=== PATIENT | female | born 1975 | race Hispanic/Latino ===

== ENCOUNTER 2016-08-14 06:18 | Day surgery (SDC) | payer OTHER ==
[2016-08-14] MEDS ORDERED: WATER FOR IRRIG STERILE IR ONE (07:05)
--- NOTE | 2016-08-14 07:37 | Anesthesia Consultation ---
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
--- NOTE | 2016-08-14 07:37 | Anesthesia Day of Surgery ---
Anesthesia Day of Surgery - Day of Surgery Patient Examined: Yes Patient H&P Reviewed: Yes Patient is NPO: Yes Beta Blockers: Yes
[2016-08-14] MEDS ORDERED: DIPRIVAN 10 MG/ML IV ONE (07:57)
[2016-08-14] MEDS ORDERED: NACL 0.9% 1000 ML 1,000 ML IV SCH (08:00)
--- NOTE | 2016-08-14 09:19 | Short Stay Summary ---
Short Stay Documentation - Allergies and Medications Current Medications: Allergies codeine Allergy (Verified 10/24/14 15:36) N&V Penicillins Allergy (Verified 10/24/14 15:36) rash, itching Home Medications Medication Instructions Recorded Confirmed Last Taken Type Aspirin [Aspirin BABY CHEW TAB] 81 mg PO QDAY 10/24/14 08/13/16 08/05/16 History Atenolol [Tenormin] 25 mg PO DAILY 10/24/14 08/13/16 08/13/16 History Escitalopram [Lexapro] 10 mg PO DAILY 10/24/14 08/13/16 08/13/16 History Omeprazole [PriLOSEC] 40 mg PO DAILY 10/24/14 08/13/16 08/13/16 History metFORMIN 1,000 mg PO BID 08/13/16 08/13/16 08/13/16 History Active Medications Sodium Chloride (Nacl 0.9% 1000 Ml) 1,000 mls @ 50 mls/hr IV DIRECT JADON - Brief post op/procedure progress note Date of procedure: 08/14/16 Pre-op diagnosis: 1. RUQ abdominal pain 2. Epigastric pain 3. GERD Post-op diagnosis: same (1. GERD 2. Gastritis 3. Duodenitis) Procedure: EGD with biopsy Anesthesia: MAC Findings: As above Surgeon: CRISSY ALVAREZ Estimated blood loss: none Pathology: list (1. Antrum) Specimen disposition: to lab Condition: stable - Disposition Condition at discharge: Stable Disposition: DISCHARGED TO HOME OR SELFCARE Short Stay Discharge Plan Activity: no restrictions Weight Bearing Status: Full Weight Bearing Diet: regular Follow up with: DANIELLE ESCALANTE MD [Primary Care Provider] - 7 Days
[2016-08-14 09:36] VITALS: BP 104/58
--- NOTE | 2016-08-14 10:34 | Post Anesthesia Evaluation ---
- Post Anesthesia Evaluation Patient Participated: Yes Airway Patent: Yes Stable Respiratory Function: Yes Nausea/Vomiting: No Temp > 96.8F: Yes Pain Manageable: Yes Adequeate Hydration: Yes Anesthesia Complications: No Block Receding Appropriately: Not Applicable Patient on Ventilator: No
== END 2016-08-14 06:19 | disposition home or self-care (01) ==
LOC: GIO 06:18
PROVIDERS: ATTEND Internal Medicine Gastroenterology
DX: K29.70 Gastritis, unspecified, without bleeding (principal); K29.80 Duodenitis without bleeding; K21.9 Gastro-esophageal reflux disease without esophagitis; M19.90 Unspecified osteoarthritis, unspecified site; J45.909 Unspecified asthma, uncomplicated; F32.9 Major depressive disorder, single episode, unspecified; G43.909 Migraine, unspecified, not intractable, without status migrainosus; Z87.01 Personal history of pneumonia (recurrent)
CPT/HCPCS: 43239; 88305; 88342; J2704; J7030

== ENCOUNTER 2016-10-09 16:59 | Outpatient (CLI) | payer OTHER ==
[2016-10-09] MEDS ORDERED: NACL ONE (17:26)
[2016-10-09 17:43] LABS: Blood Urea Nitrogen 15 mg/dL (7-17)
--- NOTE | 2016-10-09 21:04 | Cat Scan Report ---
FINAL REPORT EXAM: CT ABDOMEN PELVIS W CON HISTORY: ABD PAIN TECHNIQUE: Standard enhanced CT of the abdomen and pelvis. Delayed images through the abdomen and pelvis were also obtained. Coronal and sagittal reconstruction was also performed. Contrast: 100 cc Omnipaque 300 given IV. 450 cc RediCAT given oral PRIORS: None. FINDINGS: Within the abdomen, the liver, spleen, pancreas, gallbladder, and adrenal glands are unremarkable. There is an 1.1 cm cyst in the midpole anteriorly of the left kidney. There is an 8 mm low-density cyst in the midpole of the right kidney. No evidence for retroperitoneal or pelvic lymphadenopathy is seen. Moderate stool is present throughout the proximal half of the colon. The small bowel loops have normal caliber. No soft tissue mass, fluid collection, inflammatory change, or free air is seen within the abdomen or pelvis. The appendix is normal. Within the pelvis, the bladder is unremarkable. The uterus is mildly enlarged and lobulated. No evidence for mass or lymphadenopathy is seen in the pelvis. Images through the upper abdomen include the lung bases which are expanded and clear. Bony structures show no focal abnormalities and are intact. Medullary rowan is present in the proximal right femur. IMPRESSION: 1. no acute intra-abdominal process noted. 2. Mildly enlarged lobulated uterus 3. Bilateral renal cysts.
== END 2016-10-09 17:00 | disposition home or self-care (01) ==
LOC: CT 16:59
PROVIDERS: ATTEND Internal Medicine Gastroenterology
DX: D10.9 Benign neoplasm of pharynx, unspecified (principal); K21.9 Gastro-esophageal reflux disease without esophagitis; K58.9 Irritable bowel syndrome, unspecified; K30 Functional dyspepsia; R14.0 Abdominal distension (gaseous); K29.70 Gastritis, unspecified, without bleeding; N28.1 Cyst of kidney, acquired; N85.2 Hypertrophy of uterus
CPT/HCPCS: 36415; 74177; 82565; 84520; Q9967

== ENCOUNTER 2017-06-10 06:39 | Day surgery (SDC) | payer OTHER ==
[2017-06-10] MEDS ORDERED: NACL 0.9% 500 ML 500 ML IV SCH (07:00)
[2017-06-10] MEDS ORDERED: NACL 0.9% 500 ML 500 ML ONE (07:18)
[2017-06-10 07:23] LABS: Basophils % (Auto) 0.6 % (0.0-1.8); Eosinophils # (Auto) 0.1 K/mm3 (0.0-0.4); Eosinophils % (Auto) 2.1 % (0.0-4.3); Hematocrit 38.1 % (30.3-42.9); Hemoglobin 12.5 gm/dl (10.1-14.3); Lymphocytes # (Auto) 2.3 K/mm3 (1.2-5.4); Lymphocytes % (Auto) 34.4 % (13.4-35.0); Mean Corpuscular HGB Conc 33 % (30-34); Mean Corpuscular Hemoglobin 26 pg (28-32); Mean Corpuscular Volume 80 fl (79-97); Monocytes # (Auto) 0.4 K/mm3 (0.0-0.8); Monocytes % (Auto) 5.3 % (0.0-7.3); Platelet Count 237 K/mm3 (140-440); Red Blood Count 4.75 M/mm3 (3.65-5.03); Red Cell Distribution Width 17.7 % (13.2-15.2)
[2017-06-10 07:39] LABS: INR 0.81 (0.87-1.13)
[2017-06-10 07:43] LABS: BUN/Creatinine Ratio 18; Blood Urea Nitrogen 11 mg/dL (7-17); Hemolysis Index 73
[2017-06-10] MEDS ORDERED: XYLOCAINE 2% INFILTRATI ONE ×4 (08:29→09:15)
[2017-06-10] MEDS ORDERED: SUBLIMAZE ONE (08:29)
[2017-06-10] MEDS ORDERED: HEPARIN 10,000 UNITS/10 ML ONE (08:29)
[2017-06-10] MEDS ORDERED: VERSED ONE (08:29)
[2017-06-10] MEDS ORDERED: HEPARIN/NS 5000 UNIT/500ML(CATH LAB) 1,500 ML IR ONE (08:29)
[2017-06-10] MEDS ORDERED: NACL 0.9% IR ONE (08:40)
[2017-06-10] MEDS ORDERED: HEPARIN IR ONE (08:40)
[2017-06-10] MEDS ORDERED: SUBLIMAZE IV ONE ×2 (08:56→09:14)
[2017-06-10] MEDS ORDERED: VERSED IV ONE ×2 (08:57→09:32)
[2017-06-10] MEDS ORDERED: MORPHINE ONE (10:29)
[2017-06-10] MEDS ORDERED: MORPHINE IV ONE (11:23)
--- NOTE | 2017-06-10 11:41 | Short Stay Summary ---
Short Stay Documentation Date of service: 06/10/17 - History H&P: obtained from office - Allergies and Medications Current Medications: Allergies codeine Allergy (Verified 10/24/14 15:36) N&V Penicillins Allergy (Verified 10/24/14 15:36) rash, itching Home Medications Medication Instructions Recorded Confirmed Last Taken Type Aspirin [Aspirin BABY CHEW TAB] 81 mg PO QDAY 10/24/14 06/10/17 06/10/17 05:30 History Atenolol [Tenormin] 25 mg PO DAILY 10/24/14 06/10/17 06/09/17 History Escitalopram [Lexapro] 20 mg PO DAILY 10/24/14 06/10/17 06/09/17 History Omeprazole [PriLOSEC] 40 mg PO DAILY 10/24/14 06/10/17 06/09/17 History Ibuprofen [Motrin] 400 mg PO Q8H PRN 06/10/17 06/10/17 Unknown History Metformin HCl [Glucophage] 500 mg PO BID 06/10/17 06/10/17 06/08/17 History Nortriptyline HCl [Pamelor] 50 mg PO QHS 06/10/17 06/10/17 06/09/17 History [place]-3 Fatty Acids/Fish Oil [Fish 0 each PO DAILY 06/10/17 06/10/17 06/09/17 History Oil] Active Medications Sodium Chloride (Nacl 0.9% 500 Ml) 500 mls @ 50 mls/hr IV DIRECT JADON Stop: 06/10/17 16:59 Last Admin: 06/10/17 07:20 Dose: 50 mls/hr - Physical exam General appearance: no acute distress Integumentary: no rash HEENT: Atraumatic Lungs: Clear to auscultation Breasts: deferred Heart: Regular rate Gastrointestinal: normal Female Genitourinary: deferred Rectal Exam: deferred Extremities: no ischemia Neurological: Normal gait - Brief post op/procedure progress note Date of procedure: 06/10/17 Pre-op diagnosis: Pulmonary stenosis Post-op diagnosis: same Procedure: LHC, RHC, LV gram Anesthesia: MAC Findings: See report Surgeon: NELLIE TOPETE Estimated blood loss: none Pathology: none Condition: stable - Hospital course Hospital course: Uneventful - Disposition Condition at discharge: Good Disposition: DC-01 TO HOME OR SELFCARE Short Stay Discharge Plan Activity: no driving until cleared by PCP (for 2 days) Weight Bearing Status: Non-Weight Bearing (for 2 days) Diet: low fat, low cholesterol, low salt, diabetic Special Instructions: hold Metformin (for 2 days) Follow up with: DANIELLE ESCALANTE MD [Primary Care Provider] - 7 Days
[2017-06-10 13:45] VITALS: BP 101/66
--- NOTE | 2017-06-10 21:13 | Cardiac Catherization Report ---
LEFT AND RIGHT HEART CATHETERIZATION INDICATION FOR PROCEDURE: Severe pulmonary stenosis. PROCEDURES PERFORMED: 1. Selective left and right coronary angiography. 2. Left ventriculography. 3. Right heart catheterization with hemodynamic measurement and oxygen saturation run. DESCRIPTION OF PROCEDURE: 1. After obtaining the consent, the patient was draped using sterile technique. 2. A 2% lidocaine was injected into both the right and the left groin. 3. Using ultrasound guidance and micropuncture, a 5-Spanish vascular sheath was inserted into the right common femoral artery. 4. Using my micropuncture, a 7-Spanish vascular sheath was inserted into the left common femoral vein. 5. A 5-Spanish JR4 catheter was used to selectively engage left coronary artery. 6. A 5-Spanish 3DRC catheter was used to selectively engage the right coronary artery. 7. A 5-Spanish JR4 catheter was used to hand inject left ventriculogram. 8. A 7-Spanish Clark-Gilmer catheter was used to measure right-sided hemodynamics and a double lumen pigtail was used to measure the gradient across the pulmonary valve. 9. No complications occurred during the procedure. 10. Hemostasis was achieved at the end of the procedure using manual pressure. SPECIMEN REMOVED: None. ESTIMATED BLOOD LOSS: Minimal. FINDINGS: HEMODYNAMICS: 1. The left ventricular end-diastolic pressure was 20 mmHg. Pulmonary capillary wedge pressure could not be obtained due to the inability to wedge the pigtail. 2. The mean pulmonary artery pressure was 23 mmHg with a pulmonary artery systolic pressure of 33 mmHg and a diastolic pressure of 13 mmHg. 3. The right ventricular systolic pressure is 73 mmHg with right ventricular end-diastolic pressure of 16 mmHg. 4. The [id number] gradient across the pulmonary valve was 40 mmHg. The mean gradient across the pulmonary valve was 28.2 mmHg. The calculated aortic valve area of 0.47 cm2. 5. The mean right arterial pressure is 14 mmHg. 6. Aortic pressure was 123/82. The left ventricular systolic pressure was 123 mmHg. There was no gradient across left ventricular outflow tract. 7. The PA saturation was 58%, right ventricular saturation 59%, right atrial saturation 59%, superior vena cava saturation 63%, and aortic saturation 94%. 8. The Diony cardiac output of 3.73 L per minute with a cardiac index of 2.23 L per meter squared. CARDIAC STRUCTURES: The left ventricle is normal in size and systolic function. The left ventricular ejection fraction is estimated at 60% with normal wall motion. CORONARY ANATOMY: 1. This is a left dominant circulation. 2. The left main is angiographically normal. 3. LAD is angiographically normal. 4. Left circumflex artery is angiographically normal. 5. Right coronary artery is a small nondominant vessel that is angiographically normal. IMPRESSION: 1. Severe pulmonary valve stenosis with a [id number]-lc-[id number] gradient of 40 mmHg and a mean gradient of 28.2 mmHg. The calculated valve area of 0.47 cm2. 2. Normal left ventricular size and systolic function. 3. Essentially normal coronary arteries. 4. Borderline cardiac index. 5. No evidence of intracardiac shunt. RECOMMENDATIONS: The patient will be recommended for further assessment done at the structural heart team at [facility]. JOB# [id number] TERRANCE/CROW
== END 2017-06-10 14:10 | disposition home or self-care (01) ==
LOC: CATHLABREC 06:39
PROVIDERS: ATTEND Internal Medicine
DX: I28.8 Other diseases of pulmonary vessels (principal); I25.10 Atherosclerotic heart disease of native coronary artery without angina pectoris; K21.9 Gastro-esophageal reflux disease without esophagitis; F41.9 Anxiety disorder, unspecified; F17.210 Nicotine dependence, cigarettes, uncomplicated; Z79.01 Long term (current) use of anticoagulants; Z79.82 Long term (current) use of aspirin; Z79.84 Long term (current) use of oral hypoglycemic drugs; Z98.890 Other specified postprocedural states; Z88.5 Allergy status to narcotic agent; Z88.0 Allergy status to penicillin; Z87.74 Personal history of (corrected) congenital malformations of heart and circulatory system
CPT/HCPCS: 36415; 80048; 85025; 85610; 85730; 93005; 93010; 93460; 96374; 99156; 99157; C1751; C1769; J1644; J2250; J2270; J3010; J7040; Q9967

== ENCOUNTER 2017-08-27 14:46 | Outpatient (CLI) | payer OTHER | END 2017-08-27 14:47 | disposition home or self-care (01) | LOC: SPVWC 14:46 | DX: M79.661 Pain in right lower leg (principal); M79.89 Other specified soft tissue disorders ==